=== PATIENT | female | born 1975 | race Caucasian/White ===

== ENCOUNTER 2024-10-23 06:17 | Outpatient (CLI) | payer BC, OTHER | END 2024-10-23 23:59 | disposition home or self-care (01) | LOC: MRI02 06:17 | PROVIDERS: ATTEND Family Medicine Sports Medicine | DX: M51.17 Intervertebral disc disorders with radiculopathy, lumbosacral region (principal); M43.07 Spondylolysis, lumbosacral region; M77.9 Enthesopathy, unspecified; M47.816 Spondylosis without myelopathy or radiculopathy, lumbar region; M48.07 Spinal stenosis, lumbosacral region; M53.3 Sacrococcygeal disorders, not elsewhere classified | CPT/HCPCS: 72148 ==